=== PATIENT | female | born 1940 | race Caucasian/White ===

== ENCOUNTER 2017-04-06 12:43 | Inpatient (IN) | payer OTHER, MEDICAID ==
[~2017-04-06] VITALS: Ht 170.2 cm; Wt 110.9 kg
[~2017-04-06 12:43] MED LIST: ASP81EC PO; CELE200C PO; CEPH250C PO; FOLI1TAB51 PO; FURO20TA PO; GABA-339 PO; GABA300C10 PO; HYDR-2595 PO; LEV100T PO; LEVO150T10 PO; LISI-646 PO; LISI10TA6 PO; MAGN400T5 OR; MET50T PO; METO-158 PO; MULTLIQ38 OR; NOR10T PO; OMEG1CAP10 PO; PRIM50TA29 PO; SIMV-13 PO; SIMV-8 PO; [UNRECOGNIZED DRUG - CODE] SL
[2017-04-06] MEDS ORDERED: VANCOMYCIN 1GM/250ML 250 ML IV ONE (14:30)
[2017-04-06] MEDS ORDERED: FUROSEMIDE 40 MG/4 ML VIAL IV ONE ×2 (14:30→22:30)
[2017-04-06 15:12] LABS: Basophils # (auto) 0.1 uL; Basophils % (auto) 0.8 % (0.0-2.0); Eosinophils # (auto) 0.7 uL; Eosinophils % (auto) 10.9 % (0.0-7.0); Hematocrit 35.7 % (36.0-46.0); Hemoglobin 11.7 g/dL (12.2-16.2); Lymphocytes # (auto) 1.8 uL; Mean Corpuscular Hemoglobin 30.2 pg (28.0-32.0); Mean Corpuscular Hgb Conc. 32.7 g/dL (32.0-36.0); Mean Corpuscular Volume 92.4 fL (80.0-100.0); Monocytes # (auto) 0.5 uL; Monocytes % (auto) 7.7 % (0.0-12.0); Neutrophils # (auto) 3.4 uL; Neutrophils % (auto) 52.6 % (37.0-80.0); Nucleated Red Blood Cells % 0.1 %; Platelet Count (auto) 226 10^3/uL (140-450); Red Blood Cells 3.86 10^6/uL (4.0-5.20); White Blood Cell 6.5 10^3/uL (4.4-10.8)
[2017-04-06 15:24] LABS: Prothrombin Time 10.9 sec (9.37-12.3)
[2017-04-06 15:39] LABS: Alanine Aminotransferase 18 U/L (13-56); Alkaline Phosphatase 109 U/L (45-117); Anion Gap 8 (5-15); Aspartate Aminotransferase 26 U/L (15-37); BUN/Creatinine Ratio 24.1; Bilirubin, Total 0.4 mg/dL (0.2-1.0); Blood Urea Nitrogen 34 mg/dL (7-18); Calcium 8.7 mg/dL (8.5-10.1); Carbon Dioxide 34 mmol/L (21-32); Chloride 96 mmol/L (98-107); GFR African American 46 mL/min; GFR Non-African American 38 mL/min; Glucose 105 mg/dL (74-106); Magnesium 2.4 mg/dL (1.6-2.6); Potassium 3.2 mmol/L (3.5-5.1); Sodium 138 mmol/L (136-145); Total Protein 8.3 g/dL (6.4-8.2)
[2017-04-06] MEDS ORDERED: DOCUSATE SOD 100 MG CAP PO PRN (22:30)
[2017-04-06] MEDS ORDERED: ONDANSETRON HCL 4 MG/2 ML VIAL IV PRN (22:30)
[2017-04-06] MEDS ORDERED: ACETAMINOPHEN 325 MG TAB PO PRN (22:30)
[2017-04-06] MEDS ORDERED: NITROGLYCERIN 0.4 MG SL TAB SL PRN (22:30)
[2017-04-06] MEDS ORDERED: TEMAZEPAM 15 MG CAP PO PRN (22:30)
[2017-04-06] MEDS ORDERED: LEVOFLOXACIN 500MG 100 ML IV ONE (22:30)
[2017-04-06] MEDS ORDERED: MORPHINE SULFATE 4 MG/ML SYR/VIAL IV PRN (22:30)
[2017-04-06] MEDS ORDERED: POTASSIUM CHL 20 Meq TABLET PO ONE (22:45)
[2017-04-06] MEDS ORDERED: FUROSEMIDE 20 MG/2 ML VIAL IV ONE (23:15)
[2017-04-07] VITALS (7 sets, daily range): BP systolic 99–116; BP diastolic 36–59
[2017-04-07 00:41] LABS: Urine Bacteria FEW /hpf (None Seen); Urine Blood Negative /uL (Negative); Urine Specific Gravity 1.008 (1.001-1.035); Urine WBC <1 /hpf (0 - 5)
[2017-04-07] MEDS ORDERED: FUROSEMIDE 40 MG TAB PO SCH (06:00)
[2017-04-07] MEDS: LEVOTHYROXINE SODIUM 100 MCG TAB PO SCH (06:53)
[2017-04-07] MEDS: GABAPENTIN 300 MG CAP PO SCH ×3 (06:54→21:17)
[2017-04-07 07:27] LABS: Basophils # (auto) 0 uL; Basophils % (auto) 0.2 % (0.0-2.0); Eosinophils # (auto) 0.3 uL; Eosinophils % (auto) 4.9 % (0.0-7.0); Hemoglobin 9.8 g/dL (12.2-16.2); Lymphocytes # (auto) 1.6 uL; Lymphocytes % (auto) 24.1 % (10.0-50.0); Mean Corpuscular Hgb Conc. 33.8 g/dL (32.0-36.0); Mean Corpuscular Volume 91.6 fL (80.0-100.0); Monocytes # (auto) 0.5 uL; Monocytes % (auto) 6.9 % (0.0-12.0); Neutrophils # (auto) 4.3 uL; Neutrophils % (auto) 63.9 % (37.0-80.0); Nucleated Red Blood Cells % 0.1 %; Platelet Count (auto) 170 10^3/uL (140-450); Red Blood Cells 3.16 10^6/uL (4.0-5.20); Red Cell Distribution Width 15.1 % (11.8-14.3); White Blood Cell 6.7 10^3/uL (4.4-10.8)
[2017-04-07 07:49] LABS: Albumin 2.4 g/dL (3.4-5.0); BUN/Creatinine Ratio 25.8; Bilirubin, Total 0.5 mg/dL (0.2-1.0); Calcium 8.2 mg/dL (8.5-10.1); Total Protein 6.5 g/dL (6.4-8.2)
[2017-04-07 08:01] LABS: Potassium 2.5 mmol/L (3.5-5.1)
[2017-04-07] MEDS ORDERED: POTASSIUM CHL 20 Meq TABLET PO ONE (09:00)
[2017-04-07] MEDS: POTASSIUM CHL 20MEQ/100ML 100 ML IV SCH ×4 (09:24→21:16)
[2017-04-07] MEDS: ENOXAPARIN SOD 40 MG/0.4 ML SYRINGE SC SCH (09:45)
[2017-04-07] MEDS: ASPirin 81 mg TAB PO SCH (09:45)
[2017-04-07] MEDS: FAMOTIDINE 20 MG TAB PO SCH ×2 (09:45→21:17)
[2017-04-07] MEDS: LISINOPRIL 20 MG TAB PO SCH (09:47)
[2017-04-07] MEDS: METOPROLOL TARTRATE 50 MG TAB PO SCH ×2 (09:47→21:17)
[2017-04-07] MEDS: LEVOFLOXACIN 500MG 100 ML IV SCH (09:50)
[2017-04-07] MEDS ORDERED: POTASSIUM CHL 20MEQ/100ML 100 ML IV ONE ×2 (12:15→14:00)
[2017-04-07] MEDS: HYDROcodone-ACET 5/325MG TAB PO PRN ×2 (14:17→21:17)
[2017-04-07] MEDS ORDERED: SPIRONOLACTONE 25 MG TAB PO ONE (15:15)
[2017-04-07] MEDS: FUROSEMIDE 40 MG/4 ML VIAL IV SCH (18:20)
[2017-04-07 18:26] LABS: BUN/Creatinine Ratio 23.8; Calcium 7.9 mg/dL (8.5-10.1)
[2017-04-07 18:30] LABS: Potassium 2.9 mmol/L (3.5-5.1)
[2017-04-07] MEDS: ATORVASTATIN 20 MG TAB PO SCH (21:16)
[2017-04-08 05:00] VITALS: BP 114/46
[2017-04-08 05:53] LABS: Basophils # (auto) 0 uL; Basophils % (auto) 0.4 % (0.0-2.0); Eosinophils # (auto) 0.4 uL; Eosinophils % (auto) 7.3 % (0.0-7.0); Hematocrit 26.9 % (36.0-46.0); Hemoglobin 9.1 g/dL (12.2-16.2); Lymphocytes # (auto) 1.8 uL; Lymphocytes % (auto) 33.5 % (10.0-50.0); Mean Corpuscular Hemoglobin 30.9 pg (28.0-32.0); Mean Corpuscular Hgb Conc. 33.7 g/dL (32.0-36.0); Mean Corpuscular Volume 91.6 fL (80.0-100.0); Monocytes # (auto) 0.4 uL; Monocytes % (auto) 7.9 % (0.0-12.0); Neutrophils # (auto) 2.7 uL; Neutrophils % (auto) 50.9 % (37.0-80.0); Platelet Count (auto) 140 10^3/uL (140-450); Red Blood Cells 2.93 10^6/uL (4.0-5.20); Red Cell Distribution Width 14.8 % (11.8-14.3); White Blood Cell 5.3 10^3/uL (4.4-10.8)
[2017-04-08] MEDS: FUROSEMIDE 40 MG/4 ML VIAL IV SCH (06:00)
[2017-04-08 06:16] LABS: BUN/Creatinine Ratio 19.9; Calcium 7.8 mg/dL (8.5-10.1); Magnesium 1.9 mg/dL (1.6-2.6); Phosphorus 2.6 mg/dL (2.5-4.90)
[2017-04-08 06:26] LABS: Potassium 2.9 mmol/L (3.5-5.1)
[2017-04-08] MEDS: GABAPENTIN 300 MG CAP PO SCH ×3 (06:28→21:25)
[2017-04-08] MEDS: LEVOTHYROXINE SODIUM 100 MCG TAB PO SCH (06:30)
[2017-04-08 08:00] VITALS: BP 98/49
[2017-04-08 08:40] VITALS: BP 101/49
[2017-04-08] MEDS: ASPirin 81 mg TAB PO SCH (09:35)
[2017-04-08] MEDS: SPIRONOLACTONE 25 MG TAB PO SCH (09:35)
[2017-04-08] MEDS: LEVOFLOXACIN 500MG 100 ML IV SCH (09:35)
[2017-04-08] MEDS: FAMOTIDINE 20 MG TAB PO SCH ×2 (09:35→21:44)
[2017-04-08] MEDS: LISINOPRIL 20 MG TAB PO SCH (10:00)
[2017-04-08] MEDS: METOPROLOL TARTRATE 50 MG TAB PO SCH ×2 (10:00→21:25)
[2017-04-08] MEDS ORDERED: POTASSIUM CHLORIDE 40 MEQ, LIDOCAINE 1% (LOCAL ANESTH.) 4 ML in SODIUM CHL 0.9% 100 ML IV ONE (10:45)
[2017-04-08] MEDS ORDERED: POTASSIUM CHL 20 Meq TABLET PO ONE (10:45)
[2017-04-08] MEDS: ENOXAPARIN SOD 40 MG/0.4 ML SYRINGE SC SCH (10:51)
[2017-04-08 12:50] VITALS: BP 108/52
[2017-04-08 16:55] VITALS: BP 121/53
[2017-04-08] MEDS ORDERED: FUROSEMIDE 40 MG/4 ML VIAL IV SCH (18:00)
[2017-04-08] MEDS: ATORVASTATIN 20 MG TAB PO SCH (21:25)
[2017-04-08] MEDS: ASCORBIC ACID 500 MG TAB PO SCH (21:25)
[2017-04-08 22:26] VITALS: BP 118/50
[2017-04-09] MEDS: guaiFENesin 200 MG/10 ML UD GT PRN ×2 (03:22→13:58)
[2017-04-09 05:25] LABS: Basophils # (auto) 0 uL; Basophils % (auto) 0.4 % (0.0-2.0); Eosinophils # (auto) 0.6 uL; Hematocrit 28.1 % (36.0-46.0); Hemoglobin 9.3 g/dL (12.2-16.2); Lymphocytes # (auto) 1.6 uL; Lymphocytes % (auto) 26.5 % (10.0-50.0); Mean Corpuscular Hemoglobin 30.7 pg (28.0-32.0); Mean Corpuscular Hgb Conc. 33.1 g/dL (32.0-36.0); Mean Corpuscular Volume 92.8 fL (80.0-100.0); Monocytes # (auto) 0.4 uL; Monocytes % (auto) 6.7 % (0.0-12.0); Neutrophils # (auto) 3.6 uL; Neutrophils % (auto) 57.4 % (37.0-80.0); Nucleated Red Blood Cells % 0.1 %; Platelet Count (auto) 139 10^3/uL (140-450); Red Blood Cells 3.03 10^6/uL (4.0-5.20); Red Cell Distribution Width 14.8 % (11.8-14.3); White Blood Cell 6.2 10^3/uL (4.4-10.8)
[2017-04-09 05:41] LABS: BUN/Creatinine Ratio 16.7; Calcium 8.1 mg/dL (8.5-10.1); Magnesium 1.9 mg/dL (1.6-2.6); Potassium 3.3 mmol/L (3.5-5.1)
[2017-04-09 05:45] VITALS: BP_SYST 104; BP_SYST 135; BP_DIAS 50; BP_DIAS 55
[2017-04-09] MEDS: GABAPENTIN 300 MG CAP PO SCH ×2 (06:14→15:08)
[2017-04-09] MEDS: HYDROcodone-ACET 5/325MG TAB PO PRN (06:14)
[2017-04-09] MEDS: LEVOTHYROXINE SODIUM 100 MCG TAB PO SCH (06:14)
[2017-04-09 09:20] VITALS: BP 113/48
[2017-04-09] MEDS ORDERED: LEVOFLOXACIN 500 MG TAB PO SCH (10:00)
[2017-04-09] MEDS ORDERED: FUROSEMIDE 40 MG/4 ML VIAL IV SCH (10:00)
[2017-04-09] MEDS ORDERED: MULTIPLE VITAMIN TAB PO SCH (10:00)
[2017-04-09] MEDS ORDERED: POTASSIUM CHL 20 Meq TABLET PO ONE (12:00)
[2017-04-09] MEDS ORDERED: MAGNESIUM OXIDE 400 MG TAB PO ONE (12:00)
[2017-04-09] MEDS: FAMOTIDINE 20 MG TAB PO SCH (12:05)
[2017-04-09] MEDS: ENOXAPARIN SOD 40 MG/0.4 ML SYRINGE SC SCH (12:05)
[2017-04-09] MEDS: SPIRONOLACTONE 25 MG TAB PO SCH (12:06)
[2017-04-09] MEDS: METOPROLOL TARTRATE 50 MG TAB PO SCH (12:06)
[2017-04-09] MEDS: ASPirin 81 mg TAB PO SCH (12:07)
[2017-04-09] MEDS: LISINOPRIL 20 MG TAB PO SCH (12:10)
[2017-04-09 12:25] VITALS: BP 108/62
[2017-04-09] MEDS: ASCORBIC ACID 500 MG TAB PO SCH (12:25)
[2017-04-09 16:56] VITALS: BP 128/60
== END 2017-04-09 18:47 | DRG 291 ==
LOC: ER 12:43 → TELE 12:44 → MERGE 12:44 → TELE 04-07 01:52 → TELE-WESTW 04-07 02:07
PROVIDERS: ADMIT Nurse Practitioner; ATTEND Internal Medicine
DX: I11.0 Hypertensive heart disease with heart failure (principal); J18.9 Pneumonia, unspecified organism; L03.115 Cellulitis of right lower limb; E87.5 Hyperkalemia; E66.01 Morbid (severe) obesity due to excess calories; E83.42 Hypomagnesemia; J44.0 Chronic obstructive pulmonary disease with (acute) lower respiratory infection; L03.116 Cellulitis of left lower limb; I50.33 Acute on chronic diastolic (congestive) heart failure; J20.9 Acute bronchitis, unspecified; G47.00 Insomnia, unspecified; K59.00 Constipation, unspecified; E87.6 Hypokalemia; M19.90 Unspecified osteoarthritis, unspecified site; E03.9 Hypothyroidism, unspecified; I25.10 Atherosclerotic heart disease of native coronary artery without angina pectoris; I89.0 Lymphedema, not elsewhere classified; Z90.710 Acquired absence of both cervix and uterus; Z95.1 Presence of aortocoronary bypass graft; Z99.3 Dependence on wheelchair; Z88.0 Allergy status to penicillin; Z79.899 Other long term (current) drug therapy; Z79.82 Long term (current) use of aspirin; I25.2 Old myocardial infarction; Z98.61 Coronary angioplasty status; Z68.38 Body mass index [BMI] 38.0-38.9, adult
CPT/HCPCS: 36415; 71045; 80048; 80053; 81001; 83605; 83735; 83880; 84100; 84132; 84484; 85025; 85610; 87040; 93005; 93306; 93970; 96365; 96367; 96375; 97163; J1956; J2001; J3480

== ENCOUNTER 2018-03-17 19:01 | Emergency (ER) | payer OTHER, MEDICAID ==
[~2018-03-17] VITALS: Ht 162.6 cm; Wt 90.7 kg
[~2018-03-17 19:01] MED LIST changes: -CEPH250C PO
[2018-03-17 19:55] LABS: Basophils # (auto) 0 uL; Basophils % (auto) 0.6 % (0.0-2.0); Eosinophils # (auto) 0.7 uL; Hemoglobin 7.6 g/dL (12.2-16.2); Monocytes # (auto) 0.5 uL
[2018-03-17 19:56] LABS: Eosinophils % (auto) 11.5 % (0.0-7.0); Hematocrit 25.1 % (36.0-46.0); Lymphocytes # (auto) 2.1 uL; Lymphocytes % (auto) 33.9 % (10.0-50.0); Mean Corpuscular Hemoglobin 22.1 pg (28.0-32.0); Mean Corpuscular Hgb Conc. 30.4 g/dL (32.0-36.0); Mean Corpuscular Volume 72.8 fL (80.0-100.0); Monocytes % (auto) 8.7 % (0.0-12.0); Neutrophils # (auto) 2.8 uL; Neutrophils % (auto) 45.3 % (37.0-80.0); Platelet Count (auto) 267 10^3/uL (140-450); Red Blood Cells 3.45 10^6/uL (4.0-5.20); Red Cell Distribution Width 18.7 % (11.8-14.3); White Blood Cell 6.2 10^3/uL (4.4-10.8)
[2018-03-17 20:10] LABS: Alanine Aminotransferase 16 U/L (13-56); Albumin 3.2 g/dL (3.4-5.0); Anion Gap 5 (5-15); Aspartate Aminotransferase 22 U/L (15-37); BUN/Creatinine Ratio 20.3; Blood Urea Nitrogen 24 mg/dL (7-18); Calcium 8.5 mg/dL (8.5-10.1); Carbon Dioxide 31 mmol/L (21-32); Chloride 100 mmol/L (98-107); GFR African American 57 mL/min; GFR Non-African American 47 mL/min; Glucose 146 mg/dL (74-106); Potassium 3.6 mmol/L (3.5-5.1); Sodium 136 mmol/L (136-145)
[2018-03-17 20:14] LABS: Alkaline Phosphatase 117 U/L (45-117); Bilirubin, Total 0.3 mg/dL (0.2-1.0); Total Protein 7.8 g/dL (6.4-8.2)
[2018-03-17 20:51] LABS: INR 1.01 (0.9-1.15); Partial Thromboplastin Time 44.9 sec (23.78-33.04); Prothrombin Time 10.8 sec (9.27-12.13)
[2018-03-17] MEDS ORDERED: HYDROcodone-ACET 5/325MG TAB PO ONE (22:00)
[2018-03-18 00:44] VITALS: BP 121/62
== END 2018-03-18 01:12 | disposition home or self-care (01) ==
LOC: EDBD 19:01 → ER 19:10
DX: K62.5 Hemorrhage of anus and rectum (principal); D64.9 Anemia, unspecified; R53.1 Weakness; E03.9 Hypothyroidism, unspecified; R73.9 Hyperglycemia, unspecified; N28.9 Disorder of kidney and ureter, unspecified; E86.0 Dehydration; R60.0 Localized edema; M19.90 Unspecified osteoarthritis, unspecified site; I11.0 Hypertensive heart disease with heart failure; I50.9 Heart failure, unspecified; J44.9 Chronic obstructive pulmonary disease, unspecified; I25.2 Old myocardial infarction; Z95.1 Presence of aortocoronary bypass graft; Z90.49 Acquired absence of other specified parts of digestive tract; Z87.442 Personal history of urinary calculi; Z79.82 Long term (current) use of aspirin; Z79.899 Other long term (current) drug therapy; Z87.891 Personal history of nicotine dependence
CPT/HCPCS: 36415; 74176; 80053; 83880; 84443; 84484; 85025; 85610; 85730